=== PATIENT | female | born 1995 | race African-American/Black ===

== ENCOUNTER 2023-02-20 05:59 | Day surgery (SDC) | payer OTHER ==
[2023-02-19 12:22] VITALS: BMI 21.0
[2023-02-19 13:50] LABS: BHCG - Serum Negative (NEGATIVE); Pregs Control Background? CLEAR/WHITE (CLR/WHITE); Pregs Control Bar Appear? YES (CONTROL BAR)
[2023-02-19 13:52] LABS: Hemoglobin 12.5 g/dL (12.0-15.5); Mean Corpuscular HGB CONC 32.9 g/dL (32.0-36.0); Mean Corpuscular Hemoglobin 27.9 pg (27.0-33.0); Mean Corpuscular Volume 84.8 fl (81.6-98.3); Mean Platelet Volume 11.3 fl (7.4-10.4); Platelet Count 255 10x3/uL (150-450); RBC Distribution Width 13.3 % (11.5-14.5); Red Blood Cell (RBC) Count 4.48 10x6/uL (3.90-5.03); White Blood Cell (WBC) Count 5.7 10x3/uL (3.5-10.5)
[2023-02-20] MEDS ORDERED: Bupivacaine HCl 0.5%/Epinephrine 1:200,000/PF 30 ml Vial ONE (06:42)
[2023-02-20] MEDS ORDERED: Fentanyl 100 MCG/2 ML VIAL ONE (07:13)
[2023-02-20] MEDS ORDERED: Ondansetron PF 4 MG/2 ML Vial ONE (07:13)
[2023-02-20] MEDS ORDERED: PROPOFOL 40 ML ONE (07:13)
[2023-02-20] MEDS ORDERED: Midazolam HCl 2 mg/2 ml Vial ONE (07:13)
[2023-02-20] MEDS ORDERED: Rocuronium Bromide 10 MG/ML (10ML VIAL) ONE (07:13)
[2023-02-20] MEDS ORDERED: Dexamethasone 4 mg/ml Vial ONE (07:13)
[2023-02-20] MEDS ORDERED: CEFAZOLIN 2 GM VIAL ONE (07:14)
[2023-02-20] MEDS ORDERED: Lidocaine 1% PF 5 ML VIAL ONE (07:16)
[2023-02-20] MEDS ORDERED: Esmolol 100 MG/10 ML VIAL ONE (07:16)
[2023-02-20] MEDS ORDERED: Acetaminophen 500 MG TAB ONE (07:17)
[2023-02-20] MEDS ORDERED: Ketorolac Tromethamine 30 MG/ML VIAL ONE (07:57)
[2023-02-20] MEDS ORDERED: SUGAMMADEX SODIUM 200 MG/2 ML VIAL ONE (08:10)
[2023-02-20] MEDS ORDERED: HYDROmorphone 0.5 MG/0.5 ML SYRINGE ONE (08:11)
[2023-02-20] MEDS ORDERED: Meperidine HCl/PF 25 MG/ML VIAL ONE (09:05)
[2023-02-20] MEDS ORDERED: HYDROcodone/Acetaminophen 5/325 mg Tablet ONE (10:47)
== END 2023-02-20 11:45 | disposition home or self-care (01) ==
LOC: CSHSDC 05:59
PROVIDERS: ATTEND Obstetrics & Gynecology
PROC: 0UT14ZZ Resection of Left Ovary, Percutaneous Endoscopic Approach (ICD-10-PCS; principal; 2023-02-20)
DX: D27.9 Benign neoplasm of unspecified ovary (principal); F17.290 Nicotine dependence, other tobacco product, uncomplicated; Z90.89 Acquired absence of other organs; Z79.899 Other long term (current) drug therapy
CPT/HCPCS: 71275; 74177; 80053; 83690; 84484; 84703; 85025; 85027; 86850; 86900; 86901; 88307; 93005; J1100; J1170; J1885; J2175; J2250; J2270; J2405; J2704; J3010